=== PATIENT | female | born 1955 | race Caucasian/White ===

== ENCOUNTER → 2016-08-02 | Outpatient (CLI) | payer OTHER ==
[~2016-08-02] MED LIST: ADVIL100 MG PO; FLONASE; IBUPROFEN 200200 M1 PO; IBUPROFEN 600600 M1 PO; IRON PO; IRON18 MG PO; MULTIPLE VITAM1 EAC3 PO; NORCO 5-325 TA1 EACH PO; ONCE DAILY1 EACH PO; PROVERA10 MG PO
--- NOTE | ~2016-08-02 | EKG ---
[place] [address] [facility] [place] [address] ELECTROCARDIOGRAM REPORT Name: TOMMARY ANNE [id number] Admission: 08/02/16 Attend Phys: Maria G Polanco DNP Discharge: Date of : 55 Report #: [id number] THIS REPORT FOR: //name// [facility] Test Date: 2016-08-02 Test Time: 11:15:57 Pat Name: MARY ANNE TOM Department: Room: Gender: F State Director: JOHN : 1955 Requested By: Drake Gunn Order Number: [id number] MD: Mickey Cornejo Measurements Intervals [place] Rate: 60 P: 38 MD: 140 QRS: 26 QRSD: 84 T: 31 QT: 426 QTc: 426 Interpretive Statements Sinus rhythm No significant abnormality Baseline wander in lead(s) V3 Compared to ECG 08/18/2009 11:16:11 No significant changes Electronically Signed On 08-03-2016 8:28:02 CDT by Mickey Cornejo [email or web address] <ELECTRONICALLY SIGNED> By: Mickey Cornejo MD, [facility] 08/03/16 0828 14 14 Mickey Cornejo MD, [facility] /EPI
== END ==
LOC: RAD 10:48
DX: Z01.818 Encounter for other preprocedural examination (principal)

== ENCOUNTER → 2016-08-03 | Outpatient (CLI) | payer OTHER ==
[2016-08-03 10:37] LABS: CREATININE 0.8 mg/dL (0.6-1.0)
== END ==
LOC: CAT 09:59
PROVIDERS: Nurse Practitioner
DX: R22.2 Localized swelling, mass and lump, trunk (principal)

== ENCOUNTER → 2016-08-10 | Outpatient (CLI) | payer OTHER | LOC: PET 09:32 | DX: R91.8 Other nonspecific abnormal finding of lung field (principal) ==

== ENCOUNTER → 2016-11-14 | Outpatient (CLI) | payer OTHER | LOC: RAD 10:23 | DX: Z12.31 Encounter for screening mammogram for malignant neoplasm of breast (principal) ==

== ENCOUNTER → 2018-09-24 | Outpatient (CLI) | payer OTHER | LOC: BC 10:40 | DX: Z12.31 Encounter for screening mammogram for malignant neoplasm of breast (principal) ==

== ENCOUNTER → 2020-01-20 | Outpatient (CLI) | payer OTHER | LOC: RAD 13:46 | PROVIDERS: ATTEND Family Medicine | DX: Z12.31 Encounter for screening mammogram for malignant neoplasm of breast (principal) ==

== ENCOUNTER → 2020-12-08 | Outpatient (CLI) | payer OTHER, MEDICARE ==
[~2020-12-08] MED LIST changes: +CLARITIN10 M3 PO; +MAXZIDE-25 MG1 EACH PO; +METFORMIN HCL500 MG PO; +MULTI VITAMIN1 EACH PO; +SIMVASTATIN40 MG PO
== END ==
LOC: LAB 09:58
PROVIDERS: ATTEND Student in an Organized Health Care Education/Training Program
DX: Z01.812 Encounter for preprocedural laboratory examination (principal); Z20.822 Contact with and (suspected) exposure to COVID-19

== ENCOUNTER → 2020-12-09 | Outpatient (CLI) | payer OTHER, MEDICARE ==
[~2020-12-09] VITALS: Ht 177.8 cm; Wt 133.8 kg
--- NOTE | 2020-12-09 14:36 | P ---
[facility] [place] [address] PROCEDURE REPORT Name: MARY ANNE TOM Room #: REG [facility] Kelly.#: [id number] Admission: 12/09/20 Attend Phys: Isaias Jama Discharge: Date of : 55 Report #: [id number] THIS REPORT FOR: cc: Drake Gunn MD, Rene P. MD McElhinney, Christian C. MD ~ cc: Drake Gunn MD DATE OF SERVICE: 12/09/2020 PROCEDURE PERFORMED: Colonoscopy with biopsies. HISTORY OF PRESENT ILLNESS: The patient is a 65-year-old female who presents today for routine screening colonoscopy. Last colonoscopy 10 years and negative. No family history of colon cancer. She does report intermittent diarrhea and constipation at times. DESCRIPTION OF PROCEDURE: The risks and benefits of the procedure were explained to the patient, those risks including but not limited to bleeding, perforation and the risk of sedation. She understood these risks and gave informed consent. Sedation was given using propofol per Anesthesia. Next, a digital rectal exam was initially performed, which was normal. Next, using a standard Olympus colonoscope, the scope was placed in the patient's anus and advanced under direct vision to the cecum. The overall prep was excellent. The cecum and ileocecal valve were normal in appearance. Ascending, transverse and descending colon were normal. A few small scattered diverticula were noted in the sigmoid colon. No evidence of inflammation, otherwise normal. Random biopsies were obtained today to rule out the possibility of microscopic colitis. The rectal mucosa was normal. On retroflexion, small nonbleeding internal hemorrhoids were noted. The scope was then withdrawn and the procedure terminated. The patient tolerated the procedure well. IMPRESSION: 1. Sigmoid diverticulosis. 2. Small internal hemorrhoids. 3. Otherwise, normal colonoscopy. RECOMMENDATIONS: 1. Await biopsy results. 2. Repeat colonoscopy in 10 years. [facility] [address] [place] [address] PROCEDURE REPORT Name: MARY ANNE TOM SIDRA Room #: REG [facility] [id number] Admission: 12/09/20 Attend Phys: Isaias Jama Discharge: Date of : 55 Report #: [id number] Thank you for allowing me to participate in her care. <ELECTRONICALLY SIGNED> By: Isaias Zapien MD 12/09/20 1436 0854 [id number] Isaias Zapien MD /nt
--- NOTE | 2020-12-11 14:07 | PATH ---
[facility] [address] [place] [address] PATHOLOGY RPT PROCEDURE Name: NEGROMARY ANNE SIDRA Room #: REG DENILSON Mendoza.#: [id number] Admission: 12/09/20 Date of : 55 Discharge: Report #: [id number] Path Case #: [id number] [facility] Accession Number: [id number] . 01 Material submitted: . colon - RANDOM COLON BIOPSY FOR MICROSCOPIC COLITIS . 01 Clinical history: . DTS/COLONOSCOPY/SCREENING COLON CA INTERMITTENT DIARRHEA . 02 Diagnosis: Large intestinal mucosa, random colon for microscopic colitis, endoscopic biopsy: - Nonspecific reactive changes with hyperplastic changes and mild increased cellularity in lamina propria. - Negative for active cryptitis. - Negative for microscopic colitis. - Negative for dysplasia or malignancy. (IUV:pit; 12/11/2020) QTP 12/11/2020 1133 Local . 02 Electronically signed: . Deja Corado MD, Pathologist NPI- [id number] . 01 Gross description: . The specimen is received in formalin, labeled "Mary Anne Tomkaila colon BX". Received are 3 segments of pale woods tissue ranging in size from 0.3 to 0.6 cm in maximum dimensions. The specimen is submitted entirely in cassette A1.([facility]; 12/10/2020) [facility] 12/10/2020 1259 Local . 02 Pathologist provided ICD-10: Z12.11, R19.7 . 02 CPT . 388458 Specimen Comment: A courtesy copy of this report has been sent to [phone], [phone] Specimen Comment: [phone] Specimen Comment: Report sent to / DR TEE Performed at: [address] [id number] MD Jaguar Collins MD Phone: [phone] Performed at: [address] [address] PATHOLOGY RPT PROCEDURE Name: MARY ANNE TOM SIDRA Room #: REG CL Kelly.#: [id number] Admission: 12/09/20 Date of : 55 Discharge: Report #: [id number] Path Case #: [id number] [address] [id number] MD Deja Corado MD Phone: [phone]
== END | disposition home or self-care (01) ==
LOC: GI 10-07 15:03
PROVIDERS: ATTEND Specialist
DX: R19.7 Diarrhea, unspecified (principal); K59.00 Constipation, unspecified; K57.30 Diverticulosis of large intestine without perforation or abscess without bleeding; K64.8 Other hemorrhoids; F17.210 Nicotine dependence, cigarettes, uncomplicated; I10 Essential (primary) hypertension; E78.5 Hyperlipidemia, unspecified; E11.9 Type 2 diabetes mellitus without complications; Z98.890 Other specified postprocedural states; Z96.651 Presence of right artificial knee joint; Z87.442 Personal history of urinary calculi; Z90.49 Acquired absence of other specified parts of digestive tract; Z79.899 Other long term (current) drug therapy
CPT/HCPCS: 62110; 62900